=== PATIENT | female | born 1990 | race Caucasian/White ===

== ENCOUNTER → 2019-11-23 | Outpatient (CLI) | payer BC ==
--- NOTE | 2019-11-23 12:22 | US ---
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 GLAND SIZE: Right Lobe: 4.1 x 1.2 x 1.3 cm Overall Parenchyma: homogenous Left Lobe: 5.0 x 1.3 x 1.5 cm Overall Parenchyma: homogeneous Isthmus Thickness: 0.2 cm NODULES RIGHT: # of nodules measured on right: 0 LEFT: # of nodules measured on left: 1 1. 0.6 X 0.3 x 0.4 cm anechoic cystic nodule at the upper pole with well-defined margins. This has internal colloid appearing as a benign colloid nodule. This nodule is wider than tall and shows no in tranodular vascularity. ISTHMUS: # of nodules measured in the isthmus: 0 Bilateral neck scanned, no evidence of lymphadenopathy. IMPRESSION: Benign colloid thyroid nodule measuring 6 mm on the left. Mildly enlarged thyroid gland.
== END | disposition home or self-care (01) ==
LOC: RADUSWWP 11:43
PROVIDERS: ATTEND Family Medicine
DX: E04.1 Nontoxic single thyroid nodule (principal); E04.0 Nontoxic diffuse goiter
CPT/HCPCS: 76536

== ENCOUNTER → 2019-12-21 | Outpatient (CLI) | payer BC ==
--- NOTE | 2019-12-21 09:05 | MR ---
EXAMINATION TYPE: MR brain wo/w con DATE OF EXAM: 12/21/2019 COMPARISON: Thyroid ultrasound November 23, 2019. HISTORY: Constant exophthalmos, left eye TECHNIQUE: Multiplanar, multisequence images of the brain and brainstem is performed without and with IV contras t, utilizing 6.5 mL intravenous Gadavist . FINDINGS: Diffusion weighted images demonstrate no evidence of a recent infarct or other diffusion ab normality. There is no extra-axial fluid collection or significant white matter signal abnormality. The ventricular system and cisternal spaces are normal in size and appearance. The brain volume is age appropriate. Midline structures demonstrate normal morphology. Suprasellar cistern is maintained. The craniocervi laura junction appears within normal limits. Post contrast images demonstrate no abnormal enhancement. The dural venous sinuses appear patent. Some distortion related to artifact at the level of the glob es is present. Visualized globes are grossly unremarkable. Visualized sinuses are grossly clear. IMPRESSION: Unremarkable study.
== END | disposition home or self-care (01) ==
LOC: RADMRIMAIN 08:14
PROVIDERS: ATTEND Nurse Practitioner
DX: H05.242 Constant exophthalmos, left eye (principal)
CPT/HCPCS: 70553; A9585

== ENCOUNTER → 2020-12-09 | Outpatient (CLI) | payer SELFPAY ==
--- NOTE | 2020-12-09 17:16 | US ---
EXAMINATION TYPE: US abdomen complete DATE OF EXAM: 12/09/2020 COMPARISON: NONE CLINICAL HISTORY: R10.811 RUQ PAIN. Pt states ABD pulsation and retraction EXAM MEASUREMENTS: Liver Length: 14.1 cm Gallbladder Wall: 0.2 cm CBD: 0.3 cm Spleen: 11.5 cm Right Kidney: 11.2 x 4.4 x 4.2 cm Left Kidney: 10.9 x 4.6 x 4.3 cm Pancreas: wnl Liver: wnl Gallbladder: wnl Evidence for sonographic Hardwick's sign: No CBD: wnl Spleen: wnl Right Kidney: wnl Left Kidney: wnl Upper IVC: wnl Abd Aorta: wnl *No ultrasound abnormality visualized to account for pt's symptoms IMPRESSION: 1. Normal abdomen ultrasound as visualized.
== END | disposition home or self-care (01) ==
LOC: RADUSWWP 07:03
PROVIDERS: ATTEND Family Medicine
DX: R10.811 Right upper quadrant abdominal tenderness (principal)
CPT/HCPCS: 76700

== ENCOUNTER 2024-05-01 17:05 | Inpatient (IN) | payer BC ==
[2024-05-01 17:56] LABS: Anisocytosis Slight; Basophils % (A) 0 %; Eosinophils # (A) 0.1 k/uL (0-0.7); Eosinophils % (A) 1 %; HGB 11.2 gm/dL (11.4-16.0); Hypochromasia Slight; Lymphocytes # (A) 1.1 k/uL (1.0-4.8); Lymphocytes % (A) 11 %; MCH 24.8 pg (25.0-35.0); MCHC 32.9 g/dL (31.0-37.0); MCV 75.5 fL (80.0-100.0); Microcytosis Moderate; Monocytes # (A) 0.5 k/uL (0-1.0); Monocytes % (A) 5 %; Neutrophils # (A) 8.4 k/uL (1.3-7.7); Neutrophils % (A) 82 %; Platelet Count 280 k/uL (150-450); RDW 18.1 % (11.5-15.5); WBC 10.2 k/uL (3.8-10.6)
[2024-05-01 18:09] LABS: Creatinine,Urine Random 33.1 mg/dL; Protein/Creatinine Ratio,Urine 0.574
[2024-05-01 18:10] LABS: ALT 13 U/L (4-34); AST 27 U/L (14-36); African American GFR (CKD) >90 (>60 ml/min/1.73 sqM); Blood Urea Nitrogen 12 mg/dL (7-17); LDH 175 U/L (120-246); Non-African American GFR(CKD) >90 (>60 ml/min/1.73 sqM); Uric Acid 4.9 mg/dL (3.7-7.4)
[2024-05-01 18:32] LABS: Appearance,Urine Clear (Clear); Bacteria,Urine Moderate /hpf; Bilirubin,Urine Negative (Negative); Blood,Urine Negative (Negative); Color,Urine Colorless; Glucose,Urine (UA) Negative (Negative); Ketones,Urine Trace (Negative); Leukocyte Esterase,Urine Large (Negative); Mucus,Urine Rare /hpf; Nitrite,Urine Negative (Negative); PH, Urine 6.5 (5.0-8.0); Protein,Urine Negative (Negative); RBC,Urine 4 /hpf (0-5); Specific Gravity,Urine 1.008 (1.001-1.035); Squamous Epithelial Cell,Urine 3 /hpf (0-4); Urobilinogen,Urine <2.0 mg/dL (<2.0); WBC,Urine 4 /hpf (0-5)
--- NOTE | 2024-05-01 20:48 | US ---
EXAMINATION TYPE: US OB BPP wo non-stress DATE OF EXAM: 05/01/2024 COMPARISON: NONE CLINICAL INDICATION: Female, 33 years old with history of chronic hypertension; Hypertension TECHNIQUE: Transabdominal (TA). Scoring by the beef lugger during real-time assessment. FINDINGS: BPP PARAMETERS: PRESENTATION: Vertex LIE: Longitudinal?? HEART RATE: 143 bpm RHYTHM: Normal VINICIO: 18.6 DIAPHRAGM IMAGED: Yes BPP SCORIN. Breathin (1 episode of breathing of 30 second duration in 30 minutes of scanning time) 2. Movement: 2 (at least 3 discrete body movements in 30 minutes) 3. Tone: 2 (1 episode of active flexion/extension of limb) 4. VINICIO: 2 (VINICIO index > 5cm) DIRECTOR OF PLANT OPERATIONS NOTES: Incidental note of small anechoic areas seen within the placenta, largest measurin g 1.0 x 0.8 consistent with chorionic plate cysts. IMPRESSION: BPP score with details as summarized above. TOTAL SCORE: 8 / 8
[2024-05-02] MEDS ORDERED: miSOPROStoL 200 MCG TAB RECTAL PRN (06:08)
[2024-05-02] MEDS ORDERED: TRANEXAMIC 1,000 MG/100ML-NACL 1,000 MG in EMPTY BAG 1 BAG IV PRN (06:08)
[2024-05-02] MEDS ORDERED: METHYLERGONOVINE 0.2 MG/ML 1 ML AMP IM PRN (06:08)
[2024-05-02] MEDS ORDERED: miSOPROStoL 200 MCG TAB PO PRN (06:08)
[2024-05-02] MEDS ORDERED: TERBUTALINE 1 MG/ML VIAL SQ PRN (06:08)
[2024-05-02] MEDS ORDERED: OXYTOCIN 10 UNIT/ML 1 ML VIAL IM PRN (06:08)
[2024-05-02] MEDS ORDERED: CARBOPROST TROMETHAMINE 250 MCG/ML 1 ML AMP IM PRN (06:08)
[2024-05-02] MEDS: OXYTOCIN 30 UNITS/500 ML NS 30 UNIT in SALINE 1 500ML.BAG IV SCH (06:16)
[2024-05-02] MEDS: LACTATED RINGERS 1,000 ML IV SCH (06:17)
[2024-05-02 06:20] LABS: Glucose,Whole Blood 74 mg/dL (70-110)
[2024-05-02 06:28] LABS: Anisocytosis Slight; Basophils % (A) 0 %; Eosinophils # (A) 0.1 k/uL (0-0.7); Eosinophils % (A) 1 %; HCT 35.6 % (34.0-46.0); HGB 11.6 gm/dL (11.4-16.0); Hypochromasia Slight; Lymphocytes # (A) 1.3 k/uL (1.0-4.8); Lymphocytes % (A) 14 %; MCH 24.7 pg (25.0-35.0); MCHC 32.5 g/dL (31.0-37.0); MCV 76.2 fL (80.0-100.0); Mean Platelet Volume 7.9; Microcytosis Moderate; Monocytes # (A) 0.5 k/uL (0-1.0); Monocytes % (A) 6 %; Neutrophils % (A) 78 %; Platelet Count 284 k/uL (150-450); RBC 4.67 m/uL (3.80-5.40); RDW 18.4 % (11.5-15.5); WBC 8.9 k/uL (3.8-10.6)
--- NOTE | 2024-05-02 08:35 | P.HPOB ---
History of Present Illness H&P Date: 05/02/24 Chief Complaint: Elevated blood pressures in office Ms. Pearson is a 33 year old at 39 weeks and 0 days with EDC of 05/09/2024 who presents as a medical induction of labor for chronic hypertension with superimposed pre-eclampsia without severe features. She was sent over from the office with elevated blood pressures 150s/100s. She denied headache, visual disturbances, and RUQ pain. On PIH lab work up, she was found to have proteinuria with a urine P:C ratio of 0.5. The decision was made to keep the patient in-house overnight with q4 hour vitals and begin induction this morning. She has had intermittently elevated blood pressures throughout the . She has been follow home blood pressure which have all been within normal limits throughout the . She also has diet-controlled gestational diabetes, for which she has undergone weekly surveillance which has all been reassuring. The fetus is estimated to be in the 14%ile for growth based on a 36 week ultrasound, with current estimated weight at approximately 7 pounds. Obstetric history: 1 FTVD after induction of labor for gestational hypertension at 39 weeks, no complications work-up: blood type O negative (s/p rhogam at 28 weeks), antibody screen negative, rubella immune, VDRL non-reactive, HBsAg negative, failed 1 and 3 hour GTT, GBS negative. Past Medical History Past Medical History: No Reported History History of Any Multi-Drug Resistant Organisms: None Reported, MRSA Date of last positivie culture/infection: 2008 MDRO Source:: face Past Surgical History: No Surgical Hx Reported Past Anesthesia/Blood Transfusion Reactions: No Reported Reaction Past Psychological History: No Psychological Hx Reported Smoking Status: Never smoker Past Drug Use History: None Reported - Past Family History Mother Family Medical History: No Reported History Medications and Allergies Home Medications Medication Instructions Recorded Confirmed Type Aspirin 1 tab PO DAILY 06/21/22 05/01/24 History Vit No.179/Iron/Folic 1 tab PO DAILY 06/21/22 05/01/24 History [ Tablet] Allergies Allergy/AdvReac Type Severity Reaction Status Date / Time No Known Allergies Allergy Verified 05/01/24 17:09 Exam Vital Signs Temp Pulse Resp BP Pulse Ox 05/02/24 03:00 98.1 F 73 16 140/88 97 05/01/24 23:18 98.1 F 72 16 145/92 05/01/24 19:38 98.5 F 87 16 150/102 99 05/01/24 17:08 97.3 F L 87 16 146/92 98 Intake and Output 05/01/24 05/02/24 05/02/24 22:59 06:59 14:59 Other: # Voids 1 1 Weight 75.75 kg Focused physical exam is performed. This is a healthy-appearing in no apparent distress. Breathing is non-labored. Abdomen is gravid and non-tender. Cervical exam is 3 cm, 80 effacement, -1 station, anterior. AROM is undertaken with clear fluid noted. Extremities non-tender and non-edematous. heart tones are Category I and tocometer is graphing contractions every 2- 4 minutes. Results Result Diagrams: 05/02/24 06:05 05/01/24 17:35 Abnormal Lab Results - Last 24 Hours (Table) 05/01/24 05/01/24 05/01/24 Range/Units 17:15 17:35 17:35 Hgb 11.2 L (11.4-16.0) gm/dL MCV 75.5 L (80.0-100.0) fL MCH 24.8 L (25.0-35.0) pg RDW 18.1 H (11.5-15.5) % Neutrophils # 8.4 H (1.3-7.7) k/uL Creatinine 0.50 L (0.52-1.04) mg/dL Urine Ketones Trace H (Negative) Ur Leukocyte Esterase Large H (Negative) Urine Bacteria Moderate H (None) /hpf Urine Mucus Rare H (None) /hpf 05/02/24 Range/Units 06:05 Hgb (11.4-16.0) gm/dL MCV 76.2 L (80.0-100.0) fL MCH 24.7 L (25.0-35.0) pg RDW 18.4 H (11.5-15.5) % Neutrophils # (1.3-7.7) k/uL Creatinine (0.52-1.04) mg/dL Urine Ketones (Negative) Ur Leukocyte Esterase (Negative) Urine Bacteria (None) /hpf Urine Mucus (None) /hpf Assessment and Plan Assessment: 33 year old at 39 weeks being medically induced for cHTN with superi mposed preE without severe features Plan: Admit, clear liquid diet, s/p AROM, pitocin per protocol, epidural prn, close monitoring of blood pressures, will add Procardia XL 30mg to start this AM. Anticipate vaginal delivery.
[2024-05-02] MEDS: NIFEdipine XL 30 MG TAB.ER.24 PO SCH (09:07)
[2024-05-02] MEDS ORDERED: SODIUM CHLORIDE 0.9% 250 ML BAG ONE (11:02)
[2024-05-02] MEDS ORDERED: ROPIVACAINE 5 MG/ML 30 ML VIAL ONE (11:02)
[2024-05-02] MEDS ORDERED: fentaNYL (PF) 50 MCG/ML 5 ML AMP ONE (11:02)
[2024-05-02] MEDS ORDERED: LANOLIN CREAM 1 GM TUBE TOPICAL PRN (14:03)
[2024-05-02] MEDS ORDERED: HYDROCORTISONE 2.5% RECTAL CREAM 30 GM TUBE RECTAL PRN (14:03)
[2024-05-02] MEDS ORDERED: BENZOCAINE/MENTHOL SPRAY 1 GM/SPRAY AEROSOL TOPICAL PRN (14:03)
[2024-05-02] MEDS ORDERED: diphenhydrAMINE 50 MG/ML 1 ML VIAL IVP PRN ×2 (14:03)
[2024-05-02] MEDS ORDERED: ZOLPIDEM 5 MG TAB PO PRN (14:03)
[2024-05-02] MEDS ORDERED: SIMETHICONE 80 MG CHEWABLE PO PRN (14:03)
[2024-05-02] MEDS: LIDOCAINE 0.5% (PF) 5 MG/ML (50 ML SDV) SQ PRN (14:03)
[2024-05-02] MEDS ORDERED: diphenhydrAMINE 50 MG CAP PO PRN (14:03)
[2024-05-02] MEDS ORDERED: diphenhydrAMINE 25 MG CAP PO PRN (14:03)
--- NOTE | 2024-05-02 14:03 | P.PROBDLV ---
Vaginal Delivery Note - . Vaginal Delivery Note: DATE OF SERVICE: 05/02/2024 PROCEDURE: Normal Vaginal Delivery ATTENDING: Dr. Radha Malagon MD ESTIMATED BLOOD LOSS: 200 mL FINDINGS: VMI, Apgars 9/9. Weight 6 pounds 11 ounces (3030 grams) PROCEDURE: Ms. Pearson is a 33 year old at 39 weeks presenting to labor and delivery for medical induction of labor for chronic hypertension with superimposed pre-elcmapsia. The has been complicated by maternal Rh negative status as well. For further details, please review the admitting H&P. Pitocin was titrated per protocol. AROM was undertaken at 819 revealing clear amniotic fluid. The patient received epidural anesthesia per her request. The pa tient was completely dilated at 1330. She pushed effectively with contractions and brought the head to a crown. With the next push, the head was delivered over an intact perineum. One nuchal cord was reduced. A viable male was delivered at 1346. The infant was placed on the maternal abdomen and bulb suctioned. The was noted to be spontaneously crying. Cord was clamped and cut after a 60-second delay. The infant was handed off to the pediatric team. Placenta was delivered whole with gentle cord traction at 1349. Oxytocin was started to facilitate uterine tone. Uterine fundus was found to be firm and below the umbilicus upon fundal massage. Thorough examination of the cervix, vagina, periurethral area, and perineum revealed a small first degree laceration. This area was infiltrated with lidocaine and repaired with 2-0 Vicryl in a running fashion. The patient is stable and allowed to begin the bonding process.
[2024-05-02] MEDS: ACETAMINOPHEN TAB 500 MG TAB PO PRN (17:03)
[2024-05-02] MEDS: Rhogam IMMUNE GLOBULIN 1,500 UNIT/1 ML IM ONE (17:23)
[2024-05-02] MEDS: IBUPROFEN 600 MG TAB PO PRN (19:27)
[2024-05-02] MEDS: ACETAMINOPHEN TAB 325 MG TAB PO PRN (23:26)
[2024-05-02] MEDS: SENNOSIDES-DOCUSATE SODIUM 1 EACH TAB PO SCH (23:26)
[2024-05-02 23:33] VITALS: RESP 16
[2024-05-03 05:36] LABS: Anisocytosis Slight; Basophils % (A) 0 %; Eosinophils # (A) 0.1 k/uL (0-0.7); Eosinophils % (A) 1 %; HCT 30.6 % (34.0-46.0); Hypochromasia Marked; Lymphocytes # (A) 1.4 k/uL (1.0-4.8); Lymphocytes % (A) 14 %; MCH 24.8 pg (25.0-35.0); MCHC 32.1 g/dL (31.0-37.0); MCV 77.4 fL (80.0-100.0); Mean Platelet Volume 8.2; Microcytosis Slight; Monocytes % (A) 10 %; Neutrophils # (A) 7.4 k/uL (1.3-7.7); Neutrophils % (A) 74 %; Platelet Count 288 k/uL (150-450); RBC 3.95 m/uL (3.80-5.40); RDW 18.2 % (11.5-15.5); WBC 10.1 k/uL (3.8-10.6)
[2024-05-03 05:38] LABS: HGB 9.8 gm/dL (11.4-16.0)
[2024-05-03 08:18] VITALS: TEMP 98.6
[2024-05-03] MEDS: FERROUS SULFATE 325 MG TAB PO SCH (10:56)
[2024-05-03] MEDS: NIFEdipine XL 30 MG TAB.ER.24 PO STA (10:56)
--- NOTE | 2024-05-03 10:59 | P.PNOBGVD ---
Subjective - Subjective Principal diagnosis: s/p vaginal delivery Interval history: The patient is doing well this morning and had no acute events overnight. She reports minimal lochia, passing flatus, voiding without difficulty, ambulating, and eating/drinking without nausea or vomiting. She is breast feeding her without difficulty. She denies chest pain, shortness of breathing, fevers, or chills overnight. She denies pain or swelling in the legs. The patient does complain of a mild headache that began this morning. She denies visual disturbances, right upper quadrant pain. Patient reports: Reports appetite normal, Reports voiding normally, Reports pain well controlled, Reports ambulating normally : doing well, nursing well Objective - Latest Vital Signs Latest vital signs: Vital Signs Temp Pulse Resp BP Pulse Ox 05/03/24 08:00 98.6 F 87 16 151/96 97 05/03/24 04:36 74 152/99 05/02/24 23:31 75 16 137/88 99 05/02/24 19:53 98 F 83 18 154/99 96 05/02/24 17:00 141/93 05/02/24 16:01 93 16 145/95 05/02/24 15:46 89 16 144/91 05/02/24 15:31 77 16 132/84 05/02/24 15:16 77 16 137/88 05/02/24 15:01 76 16 140/90 05/02/24 14:46 97 16 144/88 05/02/24 14:31 78 16 140/89 05/02/24 14:16 80 16 143/87 98 05/02/24 14:01 98.2 F 82 16 147/86 Intake and Output 05/02/24 05/03/24 05/03/24 22:59 06:59 14:59 Intake Total 200 600 Output Total 361 Balance -161 600 Intake: Oral 200 600 Output: Output, Quantitative 361 Blood Loss Other: # Voids 1 - Exam Extremities: Present: normal Abdomen: Present: normal appearance, soft Uterus: Present: normal, firm - Labs Labs: Abnormal Lab Results - Last 24 Hours (Table) 05/03/24 Range/Units 04:19 Hgb 9.8 L D (11.4-16.0) gm/dL Hct 30.6 L (34.0-46.0) % MCV 77.4 L (80.0-100.0) fL MCH 24.8 L (25.0-35.0) pg RDW 18.2 H (11.5-15.5) % Assessment and Plan Assessment: 33 year old PPD#1 s/p normal vaginal delivery after medical induction of labor at 39 weeks for chronic hypertension with superimposed pre-eclampsia Plan: 1. . Meeting all milestones appropriately. 2. Chronic hypertension with superimposed pre-eclampsia - was started yesterday on Procardia XL 30mg daily. BPs overnight 150s/90s. Will increase this AM to 60mg qAM. 3. Viable male . Doing well at bedside, nursing well, s/p circ. Dispo: Will monitor BPs throughout the afternoon, can go home if BPs <150s/90. Otherwise will continue inpatient management.
[2024-05-03 14:49] VITALS: BP 132/87; PULSE 90
== END 2024-05-03 16:55 | disposition home or self-care (01) | DRG 807 ==
LOC: FBPOP 17:05 → 4FBP 19:00
PROVIDERS: ADMIT Obstetrics & Gynecology; ATTEND Obstetrics & Gynecology
PROC: 10907ZC Drainage of Amniotic Fluid, Therapeutic from Products of Conception, Via Natural or Artificial Opening (ICD-10-PCS; principal; 2024-05-02)
PROC: 0HQ9XZZ Repair Perineum Skin, External Approach (ICD-10-PCS; principal; 2024-05-02)
PROC: 10E0XZZ Delivery of Products of Conception, External Approach (ICD-10-PCS; principal; 2024-05-02)
PROC: 3E033VJ Introduction of Other Hormone into Peripheral Vein, Percutaneous Approach (ICD-10-PCS; principal; 2024-05-02)
PROC: 3E0334Z Introduction of Serum, Toxoid and Vaccine into Peripheral Vein, Percutaneous Approach (ICD-10-PCS; 2024-05-02)
DX: O14.04 Mild to moderate pre-eclampsia, complicating childbirth (principal); Z37.0 Single live birth; O24.420 Gestational diabetes mellitus in childbirth, diet controlled; O26.893 Other specified pregnancy related conditions, third trimester; O69.81X0 Labor and delivery complicated by cord around neck, without compression, not applicable or unspecified; O70.0 First degree perineal laceration during delivery; Z3A.39 39 weeks gestation of pregnancy; Z79.82 Long term (current) use of aspirin; Z67.91 Unspecified blood type, Rh negative
CPT/HCPCS: 36415; 59025; 76819; 81001; 82565; 82570; 83615; 84156; 84450; 84460; 84520; 84550; 85025; 85461; 86850; 86870; 86880; 86900; 86901; 99215